=== PATIENT | female | born 1940 | race Caucasian/White ===

== ENCOUNTER 2017-11-10 09:18 | Day surgery (SDC) | payer OTHER | END 2017-11-10 13:50 | disposition home or self-care (01) | LOC: AMB-ENDOS 09:18 | DX: K57.30 Diverticulosis of large intestine without perforation or abscess without bleeding (principal) ==

== ENCOUNTER 2018-12-20 18:02 | Inpatient (IN) | payer OTHER ==
[~2018-12-20] VITALS: Ht 160 cm; Wt 60.3 kg
[2018-12-20] MEDS ORDERED: PROBIOTIC1 EAC3 (19:27)
[2018-12-20] MEDS ORDERED: SYNTHROID88 MCG (19:27)
[2018-12-20] MEDS ORDERED: GAS RELIEF80 MG (19:29)
== END 2018-12-24 13:59 | disposition home or self-care (01) | DRG 392 ==
LOC: ER 18:02 → SURH 21:42
PROVIDERS: ADMIT Colon & Rectal Surgery
PROC: BW21ZZZ Computerized Tomography (CT Scan) of Abdomen and Pelvis (ICD-10-PCS; principal; 2018-12-21)
PROC: BT4JZZZ Ultrasonography of Kidneys and Bladder (ICD-10-PCS; 2018-12-22)
DX: K57.32 Diverticulitis of large intestine without perforation or abscess without bleeding (principal); N13.39 Other hydronephrosis; E03.8 Other specified hypothyroidism; K52.89 Other specified noninfective gastroenteritis and colitis; Z85.3 Personal history of malignant neoplasm of breast

== ENCOUNTER 2019-01-05 09:55 | Inpatient (IN) | payer OTHER ==
[~2019-01-05] VITALS: Ht 160 cm; Wt 56.2 kg
[~2019-01-05 09:55] MED LIST: GAS RELIEF80 MG; PROBIOTIC1 EAC3; SYNTHROID88 MCG
[2019-01-13] MEDS ORDERED: CONCEPT DHA CA1 EACH PO (14:45)
[2019-01-13] MEDS ORDERED: SYNTHROID200 MCG PO (14:45)
== END 2019-01-21 17:10 | disposition home or self-care (01) | DRG 330 ==
LOC: O/R 01-17 07:09 → SURH 01-17 07:09
PROVIDERS: ADMIT Surgery
PROC: 0T778DZ Dilation of Left Ureter with Intraluminal Device, Via Natural or Artificial Opening Endoscopic (ICD-10-PCS; 2019-01-17)
PROC: BT1FZZZ Fluoroscopy of Left Kidney, Ureter and Bladder (ICD-10-PCS; 2019-01-17)
PROC: 0DTN0ZZ Resection of Sigmoid Colon, Open Approach (ICD-10-PCS; principal; 2019-01-17 15:30)
PROC: 02HV33Z Insertion of Infusion Device into Superior Vena Cava, Percutaneous Approach (ICD-10-PCS; 2019-01-19)
DX: K57.20 Diverticulitis of large intestine with perforation and abscess without bleeding (principal); N13.39 Other hydronephrosis; D62 Acute posthemorrhagic anemia; N28.89 Other specified disorders of kidney and ureter; R50.82 Postprocedural fever; B96.89 Other specified bacterial agents as the cause of diseases classified elsewhere; K52.89 Other specified noninfective gastroenteritis and colitis; E03.8 Other specified hypothyroidism; Z53.31 Laparoscopic surgical procedure converted to open procedure; Z85.3 Personal history of malignant neoplasm of breast; Z92.21 Personal history of antineoplastic chemotherapy; Z86.010 Personal history of colon polyps